=== PATIENT | female | born 1945 | race Caucasian/White ===

== ENCOUNTER 2022-05-04 08:45 | Inpatient (IN) | payer MEDICARE, MEDICAID ==
[~2022-05-04] VITALS: Ht 149.9 cm; Wt 60.8 kg
[2022-05-04] MEDS ORDERED: OMEP20CA14 MT (10:07)
[2022-05-04] MEDS ORDERED: AMLO5TAB88 MT (10:07)
[2022-05-04] MEDS ORDERED: METF-414 MT (10:07)
[2022-05-04] MEDS ORDERED: DOCU-150 MT (10:07)
[2022-05-04] MEDS ORDERED: CLOP-31 MT (10:07)
[2022-05-04] MEDS ORDERED: MECL-159 PO (10:07)
[2022-05-04] MEDS ORDERED: ATEN-42 MT (10:07)
[2022-05-04] MEDS ORDERED: LOSA50TA41 MT (10:07)
[2022-05-04] MEDS ORDERED: LIP40 MT (10:07)
[2022-05-04] MEDS ORDERED: PHENYLEPHRINE 100MCG/ML 10ML VIAL (CATH LAB) ONE (10:59)
[2022-05-04] MEDS ORDERED: NICARDIPINE 100MCG/ML 10ML VIAL (CATH LAB) IV ONE (10:59)
[2022-05-04] MEDS ORDERED: NITROGLYCERIN 50MCG/ML 10ML VIAL (CATH LAB) IV ONE (10:59)
[2022-05-04] MEDS ORDERED: MIDAZOLAM HCL 2 MG/2 ML VIAL ONE (11:52)
[2022-05-04] MEDS ORDERED: FENTANYL CITRATE/PF 50MCG/ML 2ML VIAL ONE (11:53)
[2022-05-04] MEDS ORDERED: HEPARIN 1000 UNITS/ML 10ML ONE (11:53)
[2022-05-04] MEDS ORDERED: LIDOCAINE HCL/PF 2% 20MG/ML 5 ML/VIAL ONE (11:53)
[2022-05-04] MEDS ORDERED: IODIXANOL 320MG/ML 100 ML BOTTLE IV ONE (11:53)
[2022-05-04] MEDS ORDERED: MORPHINE SULFATE 2 MG/ML CPJ (NOT FOR IM USE) IV PRN (13:45)
[2022-05-04] MEDS ORDERED: ONDANSETRON HCL 4MG/2ML INJ IV PRN (13:45)
[2022-05-04] MEDS ORDERED: ACETAMINOPHEN 325MG TABLET PO PRN (13:45)
[2022-05-04] MEDS ORDERED: ATROPINE SULFATE 1MG/10ML SYR IV PRN (13:45)
[2022-05-04 14:00] VITALS: BP 155/76
[2022-05-04 14:30] VITALS: BP 155/79
[2022-05-04 14:42] VITALS: BP 155/76
[2022-05-04 15:00] VITALS: BP 167/78
[2022-05-04] MEDS ORDERED: AMLODIPINE 5MG TABLET PO NR (15:15)
[2022-05-04] MEDS ORDERED: NALOXONE HCL 0.4MG/ML VIAL IV PRN (15:30)
[2022-05-04] MEDS ORDERED: OMEPRAZOLE 20MG CAPSULE EXTENDED RELEASE PO NR (15:30)
[2022-05-04] MEDS ORDERED: SODIUM CHLORIDE 0.45% 1,000 ML IV ONE (15:30)
[2022-05-04] MEDS: ATENOLOL 25MG TABLET PO SCH (15:46)
[2022-05-04] MEDS ORDERED: LOSARTAN POTASSIUM 50 MG TABLET PO SCH (17:00)
[2022-05-04 20:00] VITALS: BP 150/62
[2022-05-05] VITALS: BP 139/69
[2022-05-05 04:00] VITALS: BP 139/70
[2022-05-05 06:54] LABS: BASOPHILS % 0.6 % (0.0-2.0); EOSINOPHILS % 2.1 % (0.0-5.0); HEMATOCRIT. 37.2 % (36.0-48.0); LYMPHOCYTES % 23.5 % (20.0-50.0); MEAN CORPUSCULAR HEMOGLOBIN 26.6 pg (28.0-32.0); MEAN CORPUSCULAR VOLUME 82.5 fL (81.0-99.0); MEAN PLATELET VOLUME 9.5 fl (7.4-10.4); MONOCYTES % 8.4 % (2.0-8.0); NEUTROPHILS % 65.4 % (40.0-76.0); PLATELET 156 x1000/uL (130-400); RED BLOOD CELL COUNT 4.51 mill/uL (4.2-5.4); RED CELL DISTRIBUTION WIDTH 17.9 % (11.6-14.6)
[2022-05-05 08:00] VITALS: BP 157/84
[2022-05-05] MEDS: ATENOLOL 25MG TABLET PO SCH (08:22)
[2022-05-05] MEDS ORDERED: METFORMIN HCL 500MG TABLET PO SCH (09:00)
[2022-05-05] MEDS ORDERED: AMLODIPINE 5MG TABLET PO SCH (09:00)
[2022-05-05 10:32] VITALS: BP 157/84
== END 2022-05-05 15:15 | disposition home or self-care (01) | DRG 287 ==
LOC: CCL 08:45 → 3WST 15:54
PROVIDERS: ADMIT Specialist; ATTEND Specialist
PROC: 4A023N7 Measurement of Cardiac Sampling and Pressure, Left Heart, Percutaneous Approach (ICD-10-PCS; principal; 2022-05-04)
PROC: B2111ZZ Fluoroscopy of Multiple Coronary Arteries using Low Osmolar Contrast (ICD-10-PCS; 2022-05-04)
PROC: B2131ZZ Fluoroscopy of Multiple Coronary Artery Bypass Grafts using Low Osmolar Contrast (ICD-10-PCS; 2022-05-04)
DX: I25.10 Atherosclerotic heart disease of native coronary artery without angina pectoris (principal); E11.9 Type 2 diabetes mellitus without complications; I10 Essential (primary) hypertension; E78.5 Hyperlipidemia, unspecified; Z79.899 Other long term (current) drug therapy; Z95.1 Presence of aortocoronary bypass graft; Z79.02 Long term (current) use of antithrombotics/antiplatelets; Z79.84 Long term (current) use of oral hypoglycemic drugs
CPT/HCPCS: 36415; 80048; 85025; 93005; 93459; C1769; C1887; C1893; J1644; J2250; J2370; J3010; J3490; Q9967